=== PATIENT | female | born 1965 ===

== ENCOUNTER 2025-05-01 09:43 | Outpatient (CLI) | payer OTHER ==
[2025-05-01 10:25] LABS: URINE APPEARANCE Clear; URINE BILIRRUBIN Negative (NEGATIVE); URINE COLOR Yellow; URINE GLUCOSE Negative (NEGATIVE); URINE KETONE Negative (NEGATIVE); URINE LEUKOCYTE Negative; URINE NITRATE Negative; URINE PROTEIN Negative (NEGATIVE); URINE UROBILINOGEN 0.2 E.U./dl
[2025-05-01 10:26] LABS: URINE BACTERIA 4.7 uL (0.0-1933); URINE RBC 7.6 uL (0.0-20.8)
[2025-05-01 11:04] LABS: URINE BLOOD TRACES; URINE CAST 0.00 uL (0.0-1.40); URINE EPITHELIAL CELLS 0.4 uL (0.0-38.8); URINE WBC 1.3 uL (0.0-23.2)
== END 2025-05-01 09:44 | disposition home or self-care (01) ==
LOC: LAB 09:43
DX: N39.0 Urinary tract infection, site not specified (principal); E13.21 Other specified diabetes mellitus with diabetic nephropathy

== ENCOUNTER 2025-05-03 08:17 | Outpatient (CLI) | payer OTHER | END 2025-05-03 08:20 | disposition home or self-care (01) | LOC: SONOGRAMA 08:17 | DX: N20.0 Calculus of kidney (principal) ==

== ENCOUNTER → 2025-06-10 08:30 | Outpatient (CLI) | payer OTHER ==
[2025-06-10 10:14] LABS: URINE APPEARANCE Clear; URINE BILIRRUBIN Negative (NEGATIVE); URINE BLOOD Negative; URINE COLOR Yellow; URINE GLUCOSE Negative (NEGATIVE); URINE KETONE Negative (NEGATIVE); URINE LEUKOCYTE Negative; URINE NITRATE Negative; URINE PROTEIN Negative (NEGATIVE); URINE UROBILINOGEN 0.2 E.U./dl
[2025-06-10 10:19] LABS: URINE BACTERIA 41.9 uL (0.0-1933); URINE EPITHELIAL CELLS 9.5 uL (0.0-38.8); URINE RBC 3.5 uL (0.0-20.8); URINE WBC 2.3 uL (0.0-23.2)
[2025-06-10 10:29] LABS: URINE CAST 0.14 uL (0.0-1.40)
[2025-06-10 10:46] LABS: ALT/SGPT 31.0 U/L (12-78); AST/SGOT 24.0 U/L (15-37); BILIRUBIN TOTAL 0.48 mg/dL (0.3-1.2); BUN CREA RATIO 26.0 (7.0-25.0); CHOL HDL RATIO 2.0 (0-5.0); CREATININE SERUM 0.58 mg/dL (0.55-1.02); GFR 106.77; GLOBULINA 3.4 G/DL (2.4-3.5); GLUCOSE FASTING 95.0 mg/dL (65-100); HDL 83.0 mg/dl (40-60); LDL 69.0 mg/dl (0-130); OSMOLALITY SERUM 287.0 MOSM/KG (275-295); TSH 1.65 uIU/mL (0.358-3.74); VLDL 12.0 (0-39)
== END | disposition home or self-care (01) ==
LOC: LAB 08:30
DX: E78.5 Hyperlipidemia, unspecified (principal); I10 Essential (primary) hypertension